=== PATIENT | male | born 1935 | race Caucasian/White ===

== ENCOUNTER 2018-05-21 19:30 | Outpatient (REF) | payer OTHER, SELFPAY ==
[2018-05-21 21:22] LABS: HCT 40.2 % (40.0-50.0); HGB 14.3 g/dL (13.5-17.5); Mean Corp. HGB Concentration 35.6 g/dL (32.0-36.0); Mean Corpuscular Hemoglobin 32.3 pg (27.0-33.0); Mean Corpuscular Volume 90.7 fL (80-95); Mean Platelet Volume 11.4 fL (8.0-11.0); Platelet Count 148 x1000/uL (130-400); RBC 4.43 m/cumm (4.50-6.00); RBC Distribution Width 14.1 % (11.8-14.1); White Blood Cell Count 5.35 k/cumm (4.4-10.8)
[2018-05-21 21:33] LABS: Anion Gap 6.5 mmol/L (3-11); BUN 19 mg/dL (7-18); CO2 28.5 mmol/L (21.0-32.0); Calcium 9.2 mg/dL (8.5-10.1); Chloride 106 mmol/L (98-107); Estimated GFR 58.26 (mL/min/1.73m2); Glucose 102 mg/dL (70-100); Potassium 4.7 mmol/L (3.5-5.1); Sodium 141 mmol/L (136-145)
== END 2018-05-21 19:50 ==
LOC: NCHCN 19:30
PROVIDERS: PCP Physician Assistant; Visit Provider Internal Medicine
DX: I48.0 Paroxysmal atrial fibrillation (principal); J47.9 Bronchiectasis, uncomplicated; R60.9 Edema, unspecified; D12.6 Benign neoplasm of colon, unspecified
CPT/HCPCS: 80048; 85027; 84443

== ENCOUNTER 2019-01-22 16:33 | Outpatient (REF) | payer OTHER, SELFPAY ==
--- NOTE | 2019-01-22 15:30 | SKI_PTH ---
PATIENT: Rohan Gates LOC: [facility] U#:[id number] AGE/SX: 83/M ROOM: RE01/22/[address]: Eric Renteria : 1935 BED: DIS: 01/22/2019 SPEC #: [id number] RECD: 01/22/19 18:46 STATUS: KEO REQ #: [id number] KORY: 01/22/19 15:[address]: Eric Renteria DEPT: Surgical Specimen RECD BY: Cassi Valencia ENTERED: 01/22/19 18:46 SP TYPE: ANTHONY CHAND DR: Sadi Lamb Tissues: 1 - SKIN BIOPSY(SHAVE/PUNCH) Procedures: SKIN LEVEL 4 Comments: [id number]
[2019-01-22 20:05] LABS: Vitamin B12 649 pg/mL (193-986)
== END 2019-01-22 16:53 ==
LOC: NCHCN 16:33
PROVIDERS: PCP Physician Assistant; Visit Provider Internal Medicine
DX: C44.310 Basal cell carcinoma of skin of unspecified parts of face (principal); G60.9 Hereditary and idiopathic neuropathy, unspecified; L57.0 Actinic keratosis
CPT/HCPCS: 82607; 83036; 88305

== ENCOUNTER 2019-09-08 10:43 | Outpatient (REF) | payer OTHER, SELFPAY ==
[2019-09-08 19:27] LABS: HCT 42.3 % (40.0-50.0); HGB 14.7 g/dL (13.5-17.5); Mean Corp. HGB Concentration 34.8 g/dL (32.0-36.0); Mean Corpuscular Hemoglobin 32.5 pg (27.0-33.0); Mean Corpuscular Volume 93.6 fL (80-95); Mean Platelet Volume 11.2 fL (8.0-11.0); Platelet Count 146 x1000/uL (130-400); RBC 4.52 m/cumm (4.50-6.00); RBC Distribution Width 14.4 % (11.8-14.1); White Blood Cell Count 6.65 k/cumm (4.4-10.8)
[2019-09-08 19:43] LABS: ALT 21 U/L (16-63); Anion Gap 7.7 mmol/L (3-11); BUN 20 mg/dL (7-18); CO2 28.3 mmol/L (21.0-32.0); CREATININE 1.35 mg/dL (0.70-1.30); Calcium 9.3 mg/dL (8.5-10.1); Calculated LDL 61 mg/dL (<100); Chloride 107 mmol/L (98-107); Cholesterol 115 mg/dL (<200); Estimated GFR 50.72 (mL/min/1.73m2); Glucose 107 mg/dL (74-106); HDL Cholesterol 41 mg/dL (40-60); Sodium 143 mmol/L (136-145); Triglyceride 66 mg/dL (<150)
[2019-09-08 19:55] LABS: Creatine Kinase 33 U/L (39-308)
== END 2019-09-08 11:03 ==
LOC: NCHCN 10:43
PROVIDERS: PCP Physician Assistant; Visit Provider Nurse Practitioner Family
DX: E78.5 Hyperlipidemia, unspecified (principal); I10 Essential (primary) hypertension
CPT/HCPCS: 80048; 80061; 82550; 85027; 84460

== ENCOUNTER 2020-03-31 13:36 | Outpatient (REF) | payer OTHER, SELFPAY ==
[2020-03-31 16:02] LABS: HCT 40.9 % (40.0-50.0); HGB 14.1 g/dL (13.5-17.5); MCH 32.8 pg (27.0-33.0); MCHC 34.5 % (32.0-36.0); MCV 95.1 fL (80-95); MPV 10.9 fL (8.0-11.0); Platelet Count 162 10^3/uL (130-400); RDW 13.9 % (11.8-14.1); RDW-SD 48.2 fL; WBC 6.05 10^3/uL (4.4-10.8)
[2020-03-31 16:18] LABS: ALT 28 U/L (16-63); AST 24 U/L (15-37); Alkaline Phosphatase 108 U/L (46-116); Anion Gap 7.1 mmol/L (3-11); BUN 20 mg/dL (7-18); Bilirubin, Total 2.2 mg/dL (0.2-1.0); CO2 28.9 mmol/L (21.0-32.0); CREATININE 1.33 mg/dL (0.70-1.30); Calcium 9.4 mg/dL (8.5-10.1); Chloride 106 mmol/L (98-107); Estimated GFR 51.48 (mL/min/1.73m2); Glucose 105 mg/dL (74-106); LDL CHOLESTEROL 57 mg/dL (<100); Sodium 142 mmol/L (136-145); Total Protein 7.1 g/dL (6.4-8.2)
== END 2020-03-31 13:56 ==
LOC: NCHCN 13:36
PROVIDERS: PCP Physician Assistant; Visit Provider Internal Medicine
DX: I20.9 Angina pectoris, unspecified (principal); I73.9 Peripheral vascular disease, unspecified; Z00.00 Encounter for general adult medical examination without abnormal findings; J47.9 Bronchiectasis, uncomplicated
CPT/HCPCS: 80053; 83721; 85027

== ENCOUNTER 2020-04-21 12:11 | Outpatient (REF) | payer OTHER, SELFPAY ==
--- NOTE | 2020-04-21 11:50 | SKI_PTH ---
PATIENT: Rohan Gates LOC: [facility] U#:[id number] AGE/SX: 84/M ROOM: RE04/21/[address]: Eric Renteria : 1935 BED: DIS: 04/21/2020 SPEC #: [id number] RECD: 04/21/20 17:40 STATUS: KEO RERonda #: [id number] KORY: 04/21/20 11:[address]: Eric Renteria DEPT: Surgical Specimen RECD BY: Cassi Valencia ENTERED: 04/21/20 17:41 SP TYPE: ANTHONY CHAND DR: Sadi Lamb Tissues: 1 - SKIN BIOPSY(SHAVE/PUNCH) Procedures: SKIN LEVEL 4 Comments: [id number]
== END 2020-04-21 12:12 | disposition home or self-care (01) ==
LOC: NCHCN 12:11
PROVIDERS: PCP Physician Assistant; Visit Provider Internal Medicine
DX: L82.1 Other seborrheic keratosis (principal)
CPT/HCPCS: 88305

== ENCOUNTER 2020-09-29 21:31 | Outpatient (REF) | payer OTHER, SELFPAY ==
[2020-09-29 18:31] LABS: HCT 40.3 % (40.0-50.0); MCH 32.7 pg (27.0-33.0); MCHC 34.7 % (32.0-36.0); MCV 94.2 fL (80-95); MPV 11.5 fL (8.0-11.0); Platelet Count 158 10^3/uL (130-400); RBC 4.28 10^6/uL (4.36-5.78); RDW 13.5 % (11.8-14.1); RDW-SD 46.5 fL; WBC 5.46 10^3/uL (4.4-10.8)
[2020-09-29 19:36] LABS: BUN 20 mg/dL (7-18); CREATININE 1.4 mg/dL (0.70-1.30); Calcium 9.3 mg/dL (8.5-10.1); Chloride 106 mmol/L (98-107); Estimated GFR 48.52 (mL/min/1.73m2); Glucose 111 mg/dL (74-106); Potassium 3.8 mmol/L (3.5-5.1); Sodium 144 mmol/L (136-145); TSH 2.92 uIU/mL (0.36-3.74)
[2020-09-29 19:38] LABS: Vitamin B12 > 2000 pg/mL (193-986)
== END 2020-09-29 21:32 | disposition home or self-care (01) ==
LOC: NCHCN 21:31
PROVIDERS: PCP Physician Assistant; Visit Provider Internal Medicine
DX: I48.0 Paroxysmal atrial fibrillation (principal); K22.0 Achalasia of cardia; I20.9 Angina pectoris, unspecified; R40.0 Somnolence; J47.9 Bronchiectasis, uncomplicated
CPT/HCPCS: 80048; 85027; 82607; 84443

== ENCOUNTER 2020-11-15 14:34 | Outpatient (REF) | payer OTHER, SELFPAY ==
[2020-11-17 17:20] LABS: COVID-19 RT-PCR UVMMC Result Negative (Negative)
== END 2020-11-15 14:35 | disposition home or self-care (01) ==
LOC: NCHCN 14:34
PROVIDERS: PCP Physician Assistant; Visit Provider Internal Medicine
DX: Z20.822 Contact with and (suspected) exposure to COVID-19 (principal)
CPT/HCPCS: U0003

== ENCOUNTER 2021-05-15 08:35 | Outpatient (CLI) | payer OTHER, SELFPAY ==
--- NOTE | 2021-05-15 08:30 | RT.EKG_ITS ---
APPROVED REPORT Exam: Resting ECG Reason for Exam: angina, afib Patient Location: O HR:73 bpm ECG Measurements Heart Rate 73 AXIS [place] [id number] P [id number] QRSd 97 QRS 1 QT 383 T 2 QTc 422 Conclusion Atrial fibrillation...V-rate 57- 80, irreg A-activity Abnormal R-wave progression, early transition...QRS area>0 in V2
== END 2021-05-15 08:36 | disposition home or self-care (01) ==
LOC: DI.CARD 08:36
PROVIDERS: PCP Physician Assistant; Visit Provider Internal Medicine Cardiovascular Disease
DX: I20.8 Other forms of angina pectoris (principal); I48.91 Unspecified atrial fibrillation; R94.31 Abnormal electrocardiogram [ECG] [EKG]
CPT/HCPCS: 93010

== ENCOUNTER → 2021-05-15 12:49 | Outpatient (BNVA) | payer OTHER, SELFPAY | PROVIDERS: PCP Physician Assistant; Referring Provider Physician Assistant; Visit Provider Internal Medicine Cardiovascular Disease | DX: E78.5 Hyperlipidemia, unspecified (principal); I10 Essential (primary) hypertension; I48.91 Unspecified atrial fibrillation; I20.8 Other forms of angina pectoris | CPT/HCPCS: 93005; 99204 ==

== ENCOUNTER → 2022-05-15 13:02 | Outpatient (BNVA) | payer MEDICARE, SELFPAY | PROVIDERS: PCP Physician Assistant; Referring Provider Physician Assistant; Visit Provider Internal Medicine Cardiovascular Disease | DX: I48.21 Permanent atrial fibrillation (principal); I20.8 Other forms of angina pectoris | CPT/HCPCS: 99214 ==

== ENCOUNTER 2022-05-28 01:40 | Outpatient (CLI) | payer MEDICARE, SELFPAY ==
--- NOTE | 2022-05-28 06:53 | DI.NM_ITS ---
APPROVED REPORT Exam: Exercise Treadmill Patient Location: Out-Patient Room/Bed: Stress Nurse: Dayana Rivas RN Ordering Provider:JUDAH GREEND, Contact Number: [phone] BMI: 31.16 Baseline Rhythm: Atrial Fibrillation Indications: Chest pain with activity, atrial fibrillation, stable angina Medical History Medical History: Afib, asthma, obesity, HTN, HLD, GERD, osteoarthritis Cardiac Medications: Aspirin, atorvastatin, flovent HFA, furosemide, metoprolol succinate, nitroglyce rin, xarelto co Q-10 Allergies: NKA Cardiac Risk Factors: HTN, HLD, family hx, former smoker, asthma, obesity Previous Cardiac Procedures: none Pretest Chest Pain Characteristics: none Exercise History: Sedentary Physical Disabilities: None Lung Sounds: Clear to auscultation Heart Sounds: Irregular Stress Test Details Test: Exercise stress testing was performed using a Logan protocol. Nuclear Acquisition: Rest Tc-99m/Stress Tc-99m 1 day Rest Dose: 10.5 Date: 05/28/2022 Injection Time: 0915 Stress Isotope: Tc-99m Sestamibi. Dose: 33.0 Date: 05/28/2022 Injection Time: 1108 HR Resting HR Supine: 60 bpm Max Heart Rate (APMHR): 136 bpm Resting HR Standin bpm Target HR (85% APMHR): 116 bpm Max HR Achieved: 167 bpm % of APMHR: 123 Recovery HR: 66 bpm HR response to stress: Normal HR response to stress Comment: Atenolol not held prior to testing. BP Resting BP Supine: 127/78 mmHg Resting BP Standin/84 mmHg Max BP: 142/86 mmHg Recovery BP: 128/80 mmHg BP response to stress: Normal blood pressure response to stress. ECG Resting ECG: Atrial Fibrillation Ectopy: none Stress ECG: Atrial Fibrillation ST Change: No significant ST segment changes noted Arrhythmia: Atrial fibrillation Recovery ECG: Atrial Fibrillation Recovery ST Change: No significant ST segment changes noted Recovery Arrhythmia: Atrial Fibrillation Clinical Reason for Termination: Target HR Achieved Stress Symptoms: Dyspnea Exercise duration: 3 min25 sec Highest Stage Reached: Stage 1: 1.7 mph at 10% grade. Exercise capacity: 4.64 METs Angina Score: None Arroyo Treadmill Score: 1.0 Rate Pressure Product: [id number] Stress ECG Conclusion 1. Resting electrocardiogram showed atrial fibrillation 2. Patient exercised on the Logan protocol and completed a workload of 4.64 METS, limited by shortnes s of breath 3. Accelerated heart rate response to exercise. The patient achieved greater than 100% of predicted heart rate for age 4. There was no electrocardiographic evidence of myocardial ischemia 5. See MPI report [place] Treadmill Score is 1.0 which is Moderate risk. Stress Test Summary STAGE Time (mins) Speed (mph) Grade (%) HR BP SpO2 SYMPTOMS METS Supine 60 127/78 98 Standing 54 132/84 98 1 3 1.7 10 160 142/86 91 Mild dyspnea 4.5 1 min recovery 86 140/80 99 Dyspnea resolved 3 min recovery 80 132/78 98 6 min recovery 66 128/80 98 Exercise stress test terminated during stage 1 of exercise when patient reached 122% of target max HR . MPI Conclusion Myocardial perfusion is normal without evidence of ischemia or prior infarction EF 49%, normal wall motion Radiologist Interpretation Radiologist Interpretation by: Eric Gilman MD Interpretation Date/Time: 05/29/2022 15:59:29
== END 2022-05-28 02:00 ==
LOC: DI 01:41
PROVIDERS: PCP Physician Assistant; Visit Provider Internal Medicine Cardiovascular Disease
DX: I20.8 Other forms of angina pectoris (principal); I48.91 Unspecified atrial fibrillation
CPT/HCPCS: 78452; 93016; 93018; 93017

== ENCOUNTER 2022-09-13 12:21 | Outpatient (REF) | payer MEDICARE, SELFPAY ==
[2022-09-13 20:07] LABS: Abs Immature Grans 0.02 10^3/uL (0.0-0.06); Absolute Basophil Count 0.06 10^3/uL (0.0-0.2); Absolute Eosinophil Count 0.29 10^3/uL (0.0-0.7); Absolute Lymphocyte Count 1.25 10^3/uL (1.2-3.4); Absolute Monocyte Count 0.38 10^3/uL (0.1-0.8); Absolute Neutrophil Count 3.86 10^3/uL (1.2-6.7); Eosinophils % 4.9; HCT 37.5 % (40.0-50.0); HGB 13.1 g/dL (13.5-17.5); Immature Grans % 0.3; Lymphocytes % 21.3; MCHC 34.9 % (32.0-36.0); MCV 92 fL (80-95); MPV 11.8 fL (8.0-11.0); Monocytes % 6.5; Platelet Count 179 10^3/uL (130-400); RBC 4.09 10^6/uL (4.36-5.78); RDW 13.9 % (11.8-14.1); RDW-SD 46.9 fL; WBC 5.86 10^3/uL (4.4-10.8)
[2022-09-13 20:23] LABS: ALT 16 U/L (16-63); AST 17 U/L (15-37); Albumin 3.6 g/dL (3.4-5.0); Alkaline Phosphatase 106 U/L (46-116); Anion Gap 8.6 mmol/L (3-11); BUN 17 mg/dL (7-18); Bilirubin, Total 1.5 mg/dL (0.2-1.0); CO2 25.4 mmol/L (21.0-32.0); CREATININE 1.4 mg/dL (0.70-1.30); Calcium 9.3 mg/dL (8.5-10.1); Chloride 110 mmol/L (98-107); Estimated GFR 49.56 (mL/min/1.73m2); Glucose 125 mg/dL (74-106); Potassium 4.3 mmol/L (3.5-5.1); Sodium 144 mmol/L (136-145); Total Protein 6.8 g/dL (6.4-8.2)
[2022-09-17 18:09] LABS: Ferritin 285 ng/mL (26-388)
== END 2022-09-13 12:22 | disposition home or self-care (01) ==
LOC: NCHCN 12:21
PROVIDERS: PCP Physician Assistant; Visit Provider Internal Medicine
DX: N18.30 Chronic kidney disease, stage 3 unspecified (principal); I48.91 Unspecified atrial fibrillation; I10 Essential (primary) hypertension; J45.40 Moderate persistent asthma, uncomplicated; D64.9 Anemia, unspecified
CPT/HCPCS: 80053; 82728; 83540; 83550; 85025

== ENCOUNTER 2022-09-19 14:04 | Outpatient (REF) | payer MEDICARE, SELFPAY ==
[2022-09-19 20:42] LABS: Iron 89 ug/dL (65-175); Total Iron Binding Capacity 234 ug/dL (250-450); Transferrin Sat 38 % (20-55)
== END 2022-09-19 14:05 | disposition home or self-care (01) ==
LOC: NCHCN 14:04
PROVIDERS: PCP Physician Assistant; Visit Provider Internal Medicine
DX: D64.9 Anemia, unspecified (principal)
CPT/HCPCS: 83540; 83550

== ENCOUNTER 2023-05-10 20:28 | Outpatient (REF) | payer MEDICARE, SELFPAY ==
[2023-05-10 19:24] LABS: HCT 33.3 % (40.0-50.0); HGB 11.1 g/dL (13.5-17.5); MCH 30.2 pg (27.0-33.0); MCHC 33.3 % (32.0-36.0); MCV 91 fL (80-95); MPV 10.1 fL (8.0-11.0); Platelet Count 286 10^3/uL (130-400); RBC 3.67 10^6/uL (4.36-5.78); RDW 14.3 % (11.8-14.1); RDW-SD 45.6 fL; Reticulocyte 3.3 % (0.5-2.4); WBC 8.65 10^3/uL (4.4-10.8)
[2023-05-10 19:46] LABS: Iron 68 ug/dL (65-175); Total Iron Binding Capacity 239 ug/dL (250-450); Transferrin Sat 28 % (20-55)
[2023-05-10 19:50] LABS: ALT 18 U/L (16-63); AST 18 U/L (15-37); Albumin 3.4 g/dL (3.4-5.0); Alkaline Phosphatase 117 U/L (46-116); Anion Gap 7.1 mmol/L (3-11); BUN 19 mg/dL (7-18); Bilirubin, Total 1.6 mg/dL (0.2-1.0); CO2 30.9 mmol/L (21.0-32.0); CREATININE 1.8 mg/dL (0.70-1.30); Calcium 9.6 mg/dL (8.5-10.1); Chloride 106 mmol/L (98-107); Estimated GFR 36.43 (mL/min/1.73m2); Ferritin 386 ng/mL (26-388); Glucose 119 mg/dL (74-106); Potassium 3.8 mmol/L (3.5-5.1); Sodium 144 mmol/L (136-145); TSH 3.17 uIU/Ml (0.36-3.74); Total Protein 7.7 g/dL (6.4-8.2)
== END 2023-05-10 20:29 | disposition home or self-care (01) ==
LOC: NCHCN 20:28
PROVIDERS: PCP Physician Assistant; Visit Provider Internal Medicine
DX: D64.9 Anemia, unspecified (principal); R63.4 Abnormal weight loss
CPT/HCPCS: 80053; 85027; 85045; 82728; 83540; 83550; 84443

== ENCOUNTER 2024-04-29 13:23 | Outpatient (REF) | payer MEDICARE, SELFPAY ==
[2024-04-29 20:02] LABS: Abs Immature Grans 0.04 10^3/uL (0.0-0.06); Absolute Basophil Count 0.09 10^3/uL (0.0-0.2); Absolute Eosinophil Count 0.26 10^3/uL (0.0-0.7); Absolute Lymphocyte Count 1.46 10^3/uL (1.2-3.4); Absolute Monocyte Count 0.54 10^3/uL (0.1-0.8); Absolute Neutrophil Count 6.05 10^3/uL (1.2-6.7); Basophils % 1.1 %; Eosinophils % 3.1 %; HCT 39.8 % (40.0-50.0); HGB 13.9 g/dL (13.5-17.5); Immature Grans % 0.5 %; Lymphocytes % 17.3 %; MCH 31.8 pg (27.0-33.0); MCHC 34.9 % (32.0-36.0); MCV 91 fL (80-95); MPV 11.5 fL (8.0-11.0); Monocytes % 6.4 %; Neutrophils % 71.6 %; Platelet Count 170 10^3/uL (130-400); RBC 4.37 10^6/uL (4.36-5.78); RDW 14.4 % (11.8-14.1); RDW-SD 47.5 fL; WBC 8.44 10^3/uL (4.4-10.8)
[2024-04-29 20:10] LABS: ALT 15 U/L (16-63); AST 18 U/L (15-37); Albumin 3.6 g/dL (3.4-5.0); Alkaline Phosphatase 120 U/L (46-116); Anion Gap 4.7 mmol/L (3-11); BUN 18 mg/dL (7-18); CO2 32.3 mmol/L (21.0-32.0); CREATININE 1.7 mg/dL (0.70-1.30); Calcium 9.5 mg/dL (8.5-10.1); Calculated LDL 51 mg/dL (<100); Chloride 109 mmol/L (98-107); Cholesterol 111 mg/dL (<200); Estimated GFR 38.78 (mL/min/1.73m2); Glucose 115 mg/dL (74-106); HDL Cholesterol 52 mg/dL (40-60); Sodium 146 mmol/L (136-145); Total Protein 6.8 g/dL (6.4-8.2); Triglyceride 42 mg/dL (<150)
== END 2024-04-29 13:24 | disposition home or self-care (01) ==
LOC: NCHCN 13:23
PROVIDERS: PCP Internal Medicine; Visit Provider Internal Medicine
DX: E78.5 Hyperlipidemia, unspecified (principal); I48.91 Unspecified atrial fibrillation
CPT/HCPCS: 80053; 80061; 85025

== ENCOUNTER 2024-07-29 02:02 | Outpatient (CLI) | payer MEDICARE, SELFPAY ==
--- NOTE | 2024-07-29 | DI.RAD_ITS ---
Exam(s) XR KNEE LT 3V AP,LAT,GURPREET EXAM: XR KNEE LT 3V AP,LAT,GURPREET CLINICAL HISTORY: M17.12 Unilateral primary osteoarthritis LT knee, M17.0 Bilateral primary. TECHNIQUE: 2D digital imaging was performed of the left knee. Three images were obtained. AP, late ral and PA tunnel views were obtained. COMPARISON: There are no priors for comparison. FINDINGS: BONES: No acute fracture is present. No bony destructive lesion is seen. JOINTS: There is moderate narrowing in the medial femoral tibial joint. Small osteophytes are seen i n the medial femoral tibial patellofemoral joint. No joint effusion is seen. No loose body. SOFT TISSUE: Atherosclerotic calcification is present. IMPRESSION: Moderate degenerative changes seen in the left knee. DATA REPOSITORY: RADIATION DOSE DELIVERED:
--- NOTE | 2024-07-29 | DI.RAD_ITS ---
Exam(s) XR KNEE RT 3V AP,LAT,GURPREET EXAM: XR KNEE RT 3V AP,LAT,GURPREET CLINICAL HISTORY: M17.0 Bilateral primary osteoarthritis of knee, Advanced OA. TECHNIQUE: 2D digital imaging was performed of the right knee. Three views obtained. AP, lateral an d PA tunnel views were obtained. COMPARISON: No exams were available for comparison FINDINGS: BONES: No acute fracture is present. No bony destructive lesion is seen. JOINTS: There is marked narrowing in the medial femoral tibial joint. The tibia is slightly laterall y subluxed relative to the distal femur. Small osteophytes are seen at the posterior patella. No jn int effusion is seen. SOFT TISSUE: Normal. IMPRESSION: Mild degenerative changes of the right knee. DATA REPOSITORY: RADIATION DOSE DELIVERED:
== END 2024-07-29 02:22 ==
LOC: DI 02:03
PROVIDERS: PCP Internal Medicine; Visit Provider Internal Medicine
DX: M17.2 Bilateral post-traumatic osteoarthritis of knee (principal)
CPT/HCPCS: 73562

== ENCOUNTER → 2024-08-20 10:41 | Outpatient (BNVA) | payer MEDICARE, SELFPAY | PROVIDERS: PCP Internal Medicine; Referring Provider Internal Medicine; Visit Provider Physician Assistant | DX: M17.0 Bilateral primary osteoarthritis of knee (principal) | CPT/HCPCS: 99213; 20610; J1010 ==